=== PATIENT | male | born 2005 | race Two or more races ===

== ENCOUNTER 2025-01-09 10:23 | Emergency (ER) | payer OTHER ==
[~2025-01-09] VITALS: Ht 177.8 cm; Wt 106.4 kg
--- NOTE | 2025-01-09 10:41 | ED.PDOC ---
Musculoskeletal HPI Comments 19 y/o obese M presents with c/o right ankle pain and swelling s/p unwitnessed fall injury, yesterday, at 1300. Patient and mother are poor historians. Patient reports on injuring his right ankle after falling off a ladder from the highest step, while working around his home, at an estimate height of around 6 ft. Patient denies on injuring his head or sustaining any further bodily injuries or losing consciousness then. Vitals: temperature of 98.4F, pulse of 100, respiratory rate of 18, blood pressure of 143/65, and a SpO2 of 95% Past medical history: denies Past surgical history: denies rayray: HPI: Poor Historian. REVIEW OF SYSTEMS: CONSTITUTIONAL: Denies acute: fever, diaphoresis, chills, generalized weakness. HEAD: Denies acute: headache, photophobia Eyes: Denies acute: Double vision, vision loss, eye pain, eye discharge. EARS: Denies acute: tinnitus, hearing loss, ear discharge, ear pain, THROAT: Denies acute: sore throat, swelling, difficulty swallowing , pain with swallowing, change in voice. NECK: Denies acute: neck pain, neck swelling, stiff neck. HEART: Denies acute : chest pain, palpitations, LUNGS: Denies acute: SOB, wheezing, cough, hemoptysis ABDOMEN: Denies acute: abdominal pain, Nausea, Vomiting, diarrhea, melena , hematemesis, hematochezia SKIN: Denies acute: rash, redness, lesions, itchiness. EXTREMITIES: Denies acute: calf pain, numbness, tingling, weakness, Denies acute: Low back pain. Neuro: Denies acute: focal neurological deficit, motor or sensory focal neurological deficit, tremors, seizure like activity, confusion, dizziness, change in mental status, loss of bowel or bladder function, cauda equina like symptoms. : Denies acute: dysuria, hematuria, flank pain, increase in urinary frequency. PSYCH: Denies acute: hallucination, suicidal ideation, homicidal ideation. PHYSICAL EXAM: General: ---mild-----acute distress, awake and alert. Head: normocephalic, atraumatic. Neck: supple, trachea is midline, no swelling. Throat: Normal phonation. Eyes:, no erythema, no purulent discharge, no proptosis, no icterus. Heart: regular rate, regular rhythm, no significant murmur appreciated. Lungs: no apparent respiratory distress, Able to speak in full sentences. No wheezing, no rhonchi, no crackles. No stridors Clear to auscultation bilaterally. Abdomen: non tender to palpation, non distended, soft, no guarding, no rebound, + bowel sounds. Neuro: Awake, Alert, oriented to name, self, situation, follows commands GCS=15. Speech is normal. Skin: no petechia, no purpura, no cyanosis, non-pale, not jaundice. Evaluation of the area of complaint. Right lower extremity ankle. Noted right ankle bilateral malleoli swelling and focal tenderness to palpation over the malleoli eyes with the associated swelling at the dorsum of the right foot. Patient is neurovascularly intact in the affected extremity. Pedal pulses palpable. Motor and sensory are present. Patient is able to ambulate independently. Makes eye contact. moves all four extremities. Face: no apparent facial droop. Ambulating in the ED independently. ED COURSE: Chief Complaint: Lower Extremity Time Seen by MD: 10:30 Reviewed Notes: Nurses Notes, Allergies Allergies: Coded Allergies: NO KNOWN ALLERGIES (Unverified , 01/09/25) Information Source: Patient, Relative (Mother) Mode of Arrival: Ambulatory Location: Right Was a procedure done? Was a procedure done?: No Differential Diagnosis EXT Differential Diagnosis: Deep Vein Thrombosis, Compartment Syndrome, Fracture, Sprain, Dislocation, Contusion, Strain, Septic, Neurovascular injury X-Ray, Labs, Meds, VS Vital Signs Date Time Temp Pulse Resp B/P (MAP) Pulse Ox O2 Delivery O2 Flow Rate FiO2 01/09/25 12:00 95 20 01/09/25 12:00 98.3 95 20 106/73 (84) 96 98.3 01/09/25 10:30 98.4 100 18 143/65 (91) 95 98.4 [facility] [id number] [facility] [address] Ph: [phone] DIAGNOSTIC IMAGING Diagnostic Imaging Report : [id number] Signed PATIENT: DANYA MUNIZ ACCT: [id number] UNIT: [id number] : 2005 LOC: ER ROOM / BED: / AGE / SEX: 19 / M ADM STATUS: REG ER SERVICE 1039 ORDERING PHYSICIAN: JESUS ZHENG DO PROCEDURE(s): RANKL - R ANKLE 3 VIEW REASON: fall injury ORDER NUMBER(s): [id number], ACCESSION NUMBER(s): [id number] EXAM: XR Right Ankle Complete, 3 or More Views CLINICAL INDICATION: fall injury TECHNIQUE: Frontal, lateral and oblique views of the right ankle. COMPARISON: None FINDINGS: BONES/JOINTS: See below. SOFT TISSUES: Soft tissue swelling without acute fracture. OTHER FINDINGS: . IMPRESSION: 1. Soft tissue swelling without acute fracture. 2. If symptoms persist, further evaluation with CT is recommended. ATED BY: HUNTER MORELAND MD DICTATED DATE/TIME: 01/09/251113 SIGNED BY: HUNTER MORELAND MD SIGNED DATE/TIME: 01/09/251113 CC: Time of 1ST Reevaluation: 10:30 Reevaluation 1ST: Unchanged Patient Education/Counseling: Diagnosis, Treatment Family Education/Counseling: Diagnosis, Treatment Comments Patient presented with the above HPI.---ankle injury---workup was initiated. patient was found with the above mentioned diagnosis. the following medications were ordered: please refer to order lists of meds and tests obtained by myself Dr. Zheng. Patient ED course and VS have been stabilized. Patient has been reassessed in the ED and remained in a stable condition. Pertinent incidental findings were discussed with the patient and/or family. Patient/family voices understanding and is agreeable with plan. Patient has been observed in the ED adequate length of time to insure improvement/stability. Escalation of care considered: Consideration of escalation to observation or admission Patient was placed in a splint and crutches training were given. Patient was DISCHARGED home in a stable condition. All the reports of any imaging studies that were ordered by myself were reviewed by myself. Departure 1 Departure Time of Disposition: 11:29 Impression: Primary Impression: Right ankle sprain Additional Impression: Right ankle injury Disposition: 01 HOME / SELF CARE / HOMELESS Condition: Stable Additional Instructions: Additional instructions: You MUST follow-up with your primary care/family doctor in 1 to 2 days. If you are unable to see your primary care/family doctor, please return to our emergency room for re-assessment and re-evaluation in 1 to 2 days. Return to the emergency room here in our facility or to the nearest ER [facility] if your symptoms change or worsen. CONSULTATIONS: you MUST Follow-up for consultation as soon as possible with: -orthopedic doctor in 1-2 days. Please call for appointment You MUST call the consultants office yourself to make an appointment. You may need to arrange that through your insurance and/or your primary/family doctor. If you are unable to see the it support consultant in 1 to 2 days, you must return to our emergency room (or any other ER of your choice) for re-assessment and re- evaluation. Adequate fluid hydration. Leg elevation, use [id number] Tylenol ibuprofen with food for pain control. Use crutches as instructed. Nonweightbearing for two weeks until evaluated by orthopedic doctor. Below is a copy of your radiological report for follow up: [place] [address] Ph: [phone] DIAGNOSTIC IMAGING Diagnostic Imaging Report : [id number] Signed PATIENT: DANYA MUNIZ ACCT: [id number] UNIT: [id number] : 2005 LOC: ER ROOM / BED: / AGE / SEX: 19 / M ADM STATUS: REG ER SERVICE 1039 ORDERING PHYSICIAN: JESUS ZHNEG DO PROCEDURE(s): RANKL - R ANKLE 3 VIEW REASON: fall injury ORDER NUMBER(s): [id number], ACCESSION NUMBER(s): [id number] EXAM: XR Right Ankle Complete, 3 or More Views CLINICAL INDICATION: fall injury TECHNIQUE: Frontal, lateral and oblique views of the right ankle. COMPARISON: None FINDINGS: BONES/JOINTS: See below. SOFT TISSUES: Soft tissue swelling without acute fracture. OTHER FINDINGS: . IMPRESSION: 1. Soft tissue swelling without acute fracture. 2. If symptoms persist, further evaluation with CT is recommended. ATED BY: HUNTER MORELAND MD DICTATED DATE/TIME: 01/09/25 1114 SIGNED BY: HUNTER MORELAND MD SIGNED DATE/TIME: 01/09/25 1114 CC: Discharged With: Self Critical Care Note Critical Care Time?: No I personally scribed for JESUS ZHENG DO ([email or web address]) on 01/09/25 at 10:41. Electronically submitted by Anam Mathias ([email or web address]). I personally scribed for JESUS ZHENG DO ([email or web address]) on 01/09/25 at 10:42. Electronically submitted by Anam Mathias ([email or web address]). I personally scribed for JESUS ZHENG DO ([email or web address]) on 01/09/25 at 11:31. Electronically submitted by Anam Mathias ([email or web address]). JESUS ZHENG DO Jan 09, 2025 10:41
--- NOTE | 2025-01-09 11:17 | DVH ---
EXAM: XR Right Ankle Complete, 3 or More Views CLINICAL INDICATION: fall injury TECHNIQUE: Frontal, lateral and oblique views of the right ankle. COMPARISON: None FINDINGS: BONES/JOINTS: See below. SOFT TISSUES: Soft tissue swelling without acute fracture. OTHER FINDINGS: . IMPRESSION: 1. Soft tissue swelling without acute fracture. 2. If symptoms persist, further evaluation with CT is recommended.
[2025-01-09 12:00] VITALS: BP 106/73; PULSE 95; RESP 20; TEMP 98.3; O2SAT 96
== END 2025-01-09 12:27 | disposition home or self-care (01) ==
LOC: ER 10:23
DX: S93.401A Sprain of unspecified ligament of right ankle, initial encounter (principal); W11.XXXA Fall on and from ladder, initial encounter; Y93.89 Activity, other specified; Y92.098 Other place in other non-institutional residence as the place of occurrence of the external cause; Y99.8 Other external cause status
CPT/HCPCS: 29515; 73610